=== PATIENT | male | born 1960 | race Caucasian/White ===

== ENCOUNTER 2016-12-20 07:32 | Day surgery (SDC) | payer OTHER ==
[~2016-12-20] VITALS: Ht 188 cm; Wt 97.0 kg
[~2016-12-20 07:32] MED LIST: GLUC100016 PO; OMEG300C3 PO; Sodium Chloride LOK Flush 10 mL Syringe IV PRN; fentaNYL-PF 50 mCg/mL 2 mL Inj IVPUSH PRN
[2016-12-20 07:51] VITALS: BP 142/88; PULSE 88; RESP 16; O2SAT 98
[2016-12-20] MEDS: 0.9% Sodium Chloride 1,000 ML IV SCH ×2 (08:23→08:55)
[2016-12-20 09:05] VITALS: BP 120/82; PULSE 74; RESP 12; O2SAT 98
[2016-12-20 09:15] VITALS: BP 113/85; PULSE 83; RESP 12; O2SAT 95
[2016-12-20 09:27] VITALS: BP 113/75; PULSE 87; RESP 14; O2SAT 96
--- NOTE | 2016-12-20 09:43 | ENDO ---
[address] [address] ENDOSCOPY PROCEDURE PATIENT: EDUARD BARKER : 1960 MR#: [id number] ADMIT: 12/20/2016 JOB ID: [id number] PROCEDURE: Colonoscopy. INDICATION: Screening. ASA CLASSIFICATION: 2. MALLAMPATI SCORE: 2. MEDICATIONS: Versed 5 mg, fentanyl 100 mcg. INSTRUMENT USED: PCF-H180-AL. PREP QUALITY: Good. PROCEDURE DETAILS: After informed consent was obtained, the patient was brought to the GI suite, where he was placed on oxygen via nasal cannula and monitored with continuous pulse oximeter, telemetry, and blood pressure monitoring. A time-out was performed. Then, he was placed in a left lateral decubitus position and medications were administered for sedation. Digital rectal exam with palpation of the prostate was performed and was unremarkable. The colonoscope was then inserted into the rectum and advanced under direct visualization to the cecum, which was identified by the presence of the ileocecal valve and appendiceal orifice. Once the cecum was reached, the colonoscope was withdrawn back into the rectum as the mucosa and lumen were examined. In the rectum, retroflexion was performed. Following retroflexion, remaining air in the rectum was suctioned, and procedure was completed. FINDINGS: 1. In the ascending colon, there was an approximately 4 mm sessile polyp that was removed with cold snare. 2. In the transverse colon, there was an approximately 4 mm polyp that was removed with a cold snare. 3. In the descending colon, there was a 4 mm polyp that was removed with a cold snare. 4. In the rectum, there was a diminutive polyp that was removed with cold biopsy forceps. 5. Retroflexed views in the rectum were unremarkable. IMPRESSION: 1. Ascending colon polyp. 2. Transverse colon polyp. 3. Descending polyp. 4. Rectal polyp. 5. Scattered diverticula were seen throughout the ascending, descending colon and cecum, as well as the sigmoid colon. RECOMMENDATIONS: 1. Fiber rich diet. 2. Repeat colonoscopy in three years. COMPLICATIONS: None. ESTIMATED BLOOD LOSS: Less than 5 mL. CC: Omar Fisher MD
--- NOTE | 2016-12-21 13:57 | PATH ---
SURGICAL PATHOLOGY Attending Physician:Artemio Alcala CASE STATUS: Signed Out PATIENT NAME: EDUARD BARKER PID: [id number] : 1960 DATE COLLECTED:12/20/2016 16:34 SPECIMEN: 1: Colon, Biopsy 2: Colon, Biopsy 3: Colon, Biopsy 4: Rectum, Biopsy CLINICAL HISTORY: COLON POLYPS 1).ASCENDING COLON POLYP 2).TRANSVERSE COLON POLYP 3).DESCENDING COLON POLYP 4).RECTAL POLYP FINAL DIAGNOSIS: 1.ASCENDING COLON POLYP: TUBULAR ADENOMA. 2.TRANSVERSE COLON POLYP: HYPERPLASTIC POLYP. 3.DESCENDING COLON POLYP: TUBULAR ADENOMA. 4.RECTAL POLYP: HYPERPLASTIC POLYP. ICD10 CODE D12.2 K63.5 D12.4 K62.1 GROSS DESCRIPTION: The specimen is received in four formalin filled containers labeled with the patient's name. 1). The specimen is sublabeled "ascending colon polyp" and consists of a 0.7 x 0.4 x 0.3 CM portion of tissue which is entirely submitted in cassette 1A. 2). The specimen is sublabeled "transverse colon polyp" and consists of a 0.3 x 0.2 x 0.2 CM portion of tissue which is entirely submitted in cassette 2A. 3). The specimen is sublabeled "descending colon polyp" and consists of a extremely tiny less than 0.1 CM portion of tissue which is entirely submitted in cassette 3A. 4). The specimen is sublabeled "rectal polyp" and consists of 3 portions of tissue which aggregate to 0.3 x 0.3 x 0.2 CM. The specimen is entirely submitted in cassette 4A. 12/20/2016 DAC MICRO DESCRIPTION: See diagnosis. ICD-9 CODES: CPT CODES: 1: 83383 2: 32230 3: 87438 4: 51263 Electronically Signed Out Noemi Webb MD [facility] Pathology [facility], [place] [address] Technical component performed at [facility], [facility] [address], [place], [address]
== END 2016-12-20 23:59 | disposition home or self-care (01) ==
LOC: END 07:32
PROVIDERS: ATTEND Internal Medicine Gastroenterology
DX: Z12.11 Encounter for screening for malignant neoplasm of colon (principal); Z86.010 Personal history of colon polyps; D12.2 Benign neoplasm of ascending colon; D12.4 Benign neoplasm of descending colon; K63.5 Polyp of colon; I10 Essential (primary) hypertension
CPT/HCPCS: 45380; 45385; G0500; J2250; J3010; J7030